=== PATIENT | female | born 1980 | race Caucasian/White ===

== ENCOUNTER 2017-06-25 05:32 | Inpatient (IN) | payer OTHER ==
[~2017-06-25] VITALS: Ht 165.1 cm; Wt 96.2 kg
[2017-06-25] MEDS ORDERED: CeFAZolin Inj 2 GM in IV Premix 1 EACH IV SCH (05:50)
[2017-06-25] MEDS ORDERED: Carboprost 250 mCg/mL Inj IM PRN ×2 (05:50→08:55)
[2017-06-25] MEDS ORDERED: Methylergonovine 0.2 mg/mL Inj IM PRN ×2 (05:50→08:55)
[2017-06-25] MEDS ORDERED: Oxytocin 10 Unit/mL Inj IM PRN ×2 (05:50→08:55)
[2017-06-25] MEDS ORDERED: Hemorrhage Kit, Post Partum XX ONE ×2 (05:50→08:55)
[2017-06-25] MEDS ORDERED: Sodium Citrate-Citric Acid 15 mL Solution PO SCH (05:50)
[2017-06-25] MEDS: Lactated Ringer's 1,000 ML IV SCH ×4 (06:29→16:37)
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
[2017-06-25 07:24] LABS: Mean Corpuscular Hemoglobin 30.3 pg (27.0-35.0); Mean Corpuscular Volume 90.1 fL (81-100)
[2017-06-25] MEDS ORDERED: Lactated Ringer's 1,000 ML IV PRN (07:24)
--- NOTE | 2017-06-25 07:24 | PCM.HPANE ---
Patient Data Surgeon Admitting Provider:Brian Jolley MD Attending Provider:Brian Jolley MD Primary Care Physician:Kitty Stout PA-C Other Provider:Misha Olivares Anesthesia Reason for Visit Previous PREVIOUS Ht/WT & BMI Body Mass Index Allergies Coded Allergies: latex (Verified Allergy, Intermediate, 06/25/17) codeine (Verified Allergy, Mild, NAUSEA, 09/14/09) Uncoded Allergies: Codeine (Allergy, Mild, 07/23/05) Past Anesthesia History Anesthesia History: Denies:: Abnormal Airway, Anesthesia Reactions, Difficult Intubation, Fam Anesthesia Reaction, Fam Malignant Hypertherm, Malignant Hyperthermia Diabetes History Hx Diabetes?: No Medications Hypertension Medication: No Home Meds Incl Beta Kei: No History History of ENT Problems?: No HEENT History: Denies:: Abnormal Airway Cataracts Difficult Intubation Dysphagia Glaucoma Hearing Problem Sinus Problem TMJ Denture Type: None Teeth Condition: Within Normal Limits Hx of Heart Problems?: No Cardiovascular History: Denies:: AICD Abdominal Aortic Aneurism Atrial Fibrillation Cardiac Surgery Chest Pain Congestive Heart Failure Coronary Artery Disease Edema Heart Murmur Hypertension Irregular Heartbeat Pacemaker Peripheral Vascular Rheumatic Fever Thrombophlebitis Valvular Heart Disease Hx of Respiratory Problem?: No Respiratory History: Denies:: Asthma COPD Chest Surgery Cough Dyspnea Emphysema Hemoptysis Oxygen Administration Pneumonia Pulmonary Embolism Tuberculosis Use of C-PAP Machine Use of Inhalers / NEBS Hx Neurologic Problems?: No Hx of GI Problems?: Yes Gastrointestinal History: Positive for:: Heartburn Hx of Problems?: No Female Hx: Positive for:: Currently Hx Musculoskeletal Problems?: No Hx Surgeries?: Yes Smoking Status: Never Smoker Stop/Bang Treated for Sleep Apnea?: No Do You Have a CPAP Machine?: No PINO Risk Assessment: Low Risk, <3 Yes Risk Assessment Category Category 1A: Patient has history of documented sleep apnea, and HAS NOT received any narcotic, sedative or anesthesia administration during this stay. Category 1B: Patient has history of documented sleep apnea, and HAS received any narcotic , sedative or anesthesia administration during this stay Category 2: Patient has SUSPECTED Obstructive Sleep Apnea, and HAS received any narcotic , sedative or anesthesia administration during this stay. Category 3: Patient has SUSPECTED Obstructive Sleep Apnea and HAS NOT received narcotic, sedative or anesthesia administration during this stay. Category 4: Outpatient in Procedural Areas with known sleep apnea or who screen positive for High Risk via the STOP/BANG questionnaire. Exam Exam General Appearance: Oriented X3 HEENT/AIRWAY: MP 2 Lungs: Normal Air Movement Heart: Regular Rate/Rhythm Meds/Labs/Diagnostics Admission Meds Current Medications Lactated Ringer's (Lr) 1,000 ml @ 125 mls/hr Q8H IV Last administered on t 06:29; Start 06/25/17 at 05:46; Stop 06/25/17 at 13:45 Labs Test 06/25/17 06:22 Plan Impression Patient chart reviewed, patient interviewed and anesthestic plan with risks, benefits, and alternatives discussed, and informed consent obtained. ASA Physical Status: ASA2 Mod Systemic Disease Anesthetic Plan: SAB Bene/Risks/Altern/Consents: Yes HP Complete Prior to Induction: Yes Art York MD Jun 25, 2017 07:24
[2017-06-25] MEDS ORDERED: Ondansetron 2 mg/mL 2 mL Inj IVPUSH PRN (07:25)
[2017-06-25] MEDS ORDERED: Atropine 0.4 mg/mL Inj IV PRN (07:25)
[2017-06-25] MEDS ORDERED: EPHEDrine Sulfate 50 mg/mL Inj IVPUSH PRN (07:25)
[2017-06-25] MEDS ORDERED: MetoCLOpramide 5 mg/mL 2 mL Inj IVPUSH PRN (07:25)
[2017-06-25] MEDS ORDERED: Phenylephrine/NS-PF 100 mCg/mL 5 mL Syringe IVPUSH PRN (07:25)
[2017-06-25] MEDS ORDERED: Dexamethasone 4 mg/mL Inj IVPUSH PRN (07:25)
[2017-06-25] MEDS ORDERED: Morphine PF 1 mg/mL 10 mL Inj EPIDURAL ONE (07:25)
[2017-06-25] MEDS ORDERED: Sodium Chloride LOK Flush 10 mL Syringe IVFLUSH PRN (08:55)
[2017-06-25] MEDS ORDERED: LANOlin HPA 7 Gm Ointment TOPICAL PRN (08:55)
[2017-06-25] MEDS ORDERED: Oxytocin 30 Units/500 mL LR 30 UNITS in IV Premix 1 EACH IV PRN (08:55)
[2017-06-25] MEDS ORDERED: TdaP Vaccine 0.5 mL Inj IM ONE (08:55)
[2017-06-25] MEDS ORDERED: Measles-Mumps-Rubella Vaccine 0.5 mL Inj SUBQ ONE (08:55)
[2017-06-25] MEDS ORDERED: Influenza (Adult) Vaccine 0.5 mL Syringe IM ONE (08:55)
--- NOTE | 2017-06-25 09:16 | PCM.ANEP1 ---
Post Anesthesia PACU Phase 1 Assessment Anesthetic Administered: GA Level of Alertness: Awake, talking Pain: No Nausea or Vomiting: No CV Function & Hydration Stable: Yes Airway Device: Lungs: Normal Air Movement PACU Phase 2 Assessment Patient Instructions Provided: N/A Art York MD Jun 25, 2017 09:16
[2017-06-25] MEDS: fentaNYL-PF 50 mCg/mL 2 mL Inj IVPUSH PRN ×2 (09:22→10:58)
[2017-06-25] MEDS: Acetaminophen IV 1,000 MG in IV Premix 1 EACH IV PRN ×2 (10:07→16:38)
[2017-06-25] MEDS ORDERED: OXYTOCIN IV ONE (11:30)
[2017-06-25] MEDS ORDERED: LACTATED RINGER S IV ONE (11:30)
[2017-06-25] MEDS ORDERED: Oxytocin 10 Unit/mL Inj ONE (12:54)
[2017-06-25] MEDS ORDERED: Phenylephrine/NS 100 mCg/mL 10 mL Syringe IVPUSH ONE (12:54)
[2017-06-25] MEDS ORDERED: Bupivacaine-MPF 0.75% 30 mL Inj ONE (12:54)
[2017-06-25] MEDS ORDERED: Ondansetron 2 mg/mL 2 mL Inj ONE (12:54)
[2017-06-25] MEDS ORDERED: MetoCLOpramide 5 mg/mL 2 mL Inj ONE (12:54)
[2017-06-25] MEDS ORDERED: Dexamethasone 4 mg/mL Inj ONE (12:54)
[2017-06-25] MEDS ORDERED: Morphine PF 1 mg/mL 10 mL Inj ONE ×2 (12:54→17:17)
[2017-06-25] MEDS ORDERED: BUPR150T8 AD (13:17)
[2017-06-25] MEDS ORDERED: MODAFINIL (13:17)
[2017-06-25] MEDS ORDERED: LEVO50TA6 PO (13:17)
[2017-06-25] MEDS: CeFAZolin Inj 2 GM in IV Premix 1 EACH IV SCH (16:42)
[2017-06-25] MEDS: oxyCODONE-Acetamin 5-325 mg Tablet PO PRN ×2 (19:38→23:43)
[2017-06-26] MEDS: CeFAZolin Inj 2 GM in IV Premix 1 EACH IV SCH (00:37)
[2017-06-26] MEDS: oxyCODONE-Acetamin 5-325 mg Tablet PO PRN ×4 (05:11→19:48)
[2017-06-26 06:31] LABS: Mean Corpuscular Hemoglobin 30.4 pg (27.0-35.0); Mean Corpuscular Volume 90.8 fL (81-100)
[2017-06-26] MEDS: hydrOXYzine Pamoate 25 mg Capsule PO PRN ×2 (10:03→16:51)
[2017-06-26] MEDS ORDERED: buPROPion SR 150 mg ER12 Tablet PO ONE (12:05)
[2017-06-27] MEDS: hydrOXYzine Pamoate 25 mg Capsule PO PRN ×2 (00:11→12:07)
[2017-06-27] MEDS: oxyCODONE-Acetamin 5-325 mg Tablet PO PRN ×4 (00:13→14:19)
--- NOTE | 2017-06-27 07:45 | PCM.DIOB ---
Obstetrical Disch Instruction Dates of Hospitalization Date of Hospital Admission Jun 25, 2017 at 05:32 Providers Admitting Physician: Brian Jolley MD Primary Care Physician: Kitty Stout PA-C Attending Physician: Brian Jolley MD Discharge Diagnosis Problems: (1) Previous section Status: Acute ICD Code: Z98.891 Diet Discharge Diet: No restrictions Activity Discharge Activity-General: Pelvic Rest for 6 weeks, No lifting >10 pounds for 4-6 weeks Dressing and Incisional Care Dressing Care: Allow Steri Stripes to fall off Hygiene: May shower, DO NOT soak incision under water, NO bathtub, hot tub or whirlpool Follow Up Plan Follow-up appointment: Weeks (Followup in 2 and 6 weeks for / postoperative checkups at [facility]. Call soon to make appointments.) Call your provider for: Fever or Chills, Shortness of breath, Heavy vaginal bleeding, Red painful breasts Brian Jolley MD Jun 27, 2017 07:45
[2017-06-27] MEDS ORDERED: IBUP-1827 PO (07:47)
[2017-06-27] MEDS ORDERED: OXYC1TAB24 PO (07:47)
[2017-06-27] MEDS ORDERED: DOCU-41 PO (07:48)
[2017-06-27] MEDS ORDERED: FERR-83 PO ×2 (07:48→07:49)
--- NOTE | 2017-06-27 10:06 | OP ---
[address] [address] OPERATIVE REPORT PATIENT: JOSH SEGUNDO : 1980 MR#: [id number] ADMIT: 06/25/2017 JOB ID: [id number] DATE OF SURGERY: 06/26/2017 SURGEON: Brian Jolley M.D. ANGLE SHEAR OPERATOR: Martin Salinas M.D. ANESTHESIA: Spinal. PREOPERATIVE DIAGNOSIS(ES): 1. Term . 2. Prior section, for requested scheduled repeat . POSTOPERATIVE DIAGNOSIS(ES): 1. Term . 2. Prior section, for requested scheduled repeat . 3. Confirmed macrosomia. PROCEDURE PERFORMED: Repeat low transverse section. INDICATIONS FOR SURGERY: This patient has previously undergone a vaginal and then a section for macrosomic fetus. She has been concerned regarding this baby size and she has requested repeat section this time as opposed to vaginal after section. She understood the risks of surgery, and signed informed consent. Note that the patient has also requested bilateral tubal excision (or bilateral tubal ligation) at time of which has been planned. However, it was unknown by surgical staff that she was in fact having secondary insurance [employer]. She has thus not signed her investUP will thus not be performed and this was discussed with the patient, and she has requested this be accomplished at about six weeks . FINDINGS AT SURGERY: Some minor adhesions in the peritoneal cavity. Uterus, ovaries and tubes normal. Baby active and crying and vigorous on the operative field. No excessive bleeding during the case. It certainly is anticipated that mother and baby will do very well during the postoperative/ timeframe. DESCRIPTION OF PROCEDURE: INCOMPLETE DICTATION: "Dictation ends here."
[2017-06-27 14:30] VITALS: BP 133/63; PULSE 106; RESP 20
--- NOTE | 2017-06-29 07:02 | DIS ---
[address] [address] DISCHARGE SUMMARY PATIENT: JOSH SEGUNDO : 1980 MR#: [id number] ADMIT: 06/25/2017 JOB ID: [id number] DIS: 06/27/2017 DISCHARGE DIAGNOSES: 1. Term , delivered. 2. Prior section, with patient requested scheduled repeat section, accomplished. 3. macrosomia. 4. Anemia. PROCEDURES PERFORMED DURING HOSPITALIZATION: 1. Repeat low transverse section. 2. Spinal anesthesia. HOSPITAL COURSE: The patient was admitted to [facility] on the morning of June 25, 2017, on which day, she underwent procedures as described. During the postoperative/ timeframe, initially she had very heavy bleeding that required Cytotec to help resolve. She then did well. hemoglobin drifted to 9.2. Patient did well with ambulation, voiding. Had no recurrent heavy bleeding. She has had no leg pain or shortness of breath. Pain management was reasonable, and she handled baby well. She had no incisional problems. Lionel were removed on the second postoperative day, with benzoin and half-inch Steri-Strip application. The patient was interested in discharge to home on the second postoperative/ day, i.e. on June 27, 2017. DISCHARGE PROGRAM: The patient will call p.r.n. Otherwise, she will follow up at two weeks for incision check, and then at six weeks for final /postoperative check up. She will observe pelvic rest, and not doing any heavy lifting for six weeks. DISCHARGE MEDICATIONS: Includes: 1. Oxycodone/acetaminophen 5/325. 2. Ibuprofen 600 mg. 3. Ferrous sulfate 325 mg p.o. b.i.d. 4. Docusate sodium 100 mg p.o. b.i.d. Prescriptions written. Note that patient has supplies of other medications that she uses at home, includin. Levothyroxine 50 mcg daily (recent start in late ). 2. Bupropion ER 150 mg daily. 3. vitamin daily.
--- NOTE | 2017-07-01 10:41 | PROG NOTE ---
[address] [address] PROGRESS NOTE PATIENT: JOSH SEGUNDO : 1980 MR#: [id number] ADMIT: 06/25/2017 JOB ID: [id number] DATE: 06/26/2017 SUBJECTIVE: The patient underwent repeat section at term, scheduled, on June 25, 2017. She experienced some initial significant bleeding in her room after transfer from the operating room, and this resolved with aggressive massage, ongoing intravenous Pitocin infusion and with per rectum Cytotec. Hemoglobin drifted down to 9.2. Otherwise, patient did well, with stable vitals. She did well, with acceptable vital signs, afebrile, with no further recurrence of heavy bleeding, with reasonable pain management, ambulating and voiding, without incisional problem, without leg pain or shortness of breath, and handling baby well. INCOMPLETE DICTATION: Dictation ends here.
== END 2017-06-27 15:53 | disposition home or self-care (01) | DRG 766 ==
LOC: FBC 05:32 → EDSTATUS 07:15
PROVIDERS: ADMIT Obstetrics & Gynecology; ATTEND Obstetrics & Gynecology
PROC: 10D00Z1 Extraction of Products of Conception, Low, Open Approach (ICD-10-PCS; principal; 2017-06-26)
DX: O34.211 Maternal care for low transverse scar from previous cesarean delivery (principal); O36.63X0 Maternal care for excessive fetal growth, third trimester, not applicable or unspecified; O90.81 Anemia of the puerperium; D64.9 Anemia, unspecified; Z37.0 Single live birth; Z3A.39 39 weeks gestation of pregnancy

== ENCOUNTER → 2017-08-07 | Day surgery (SDC) | payer OTHER ==
[~2017-08-07] MED LIST: BUPR150T12 PO; BUPR150T8 AD; DOCU-41 PO; FERR-83 PO; IBUP-1827 PO; LEVO50TA6 PO; MODAFINIL; OXYC1TAB24 PO; PREN-54 PO; [UNRECOGNIZED DRUG - CODE] PO
[2017-08-07 13:17] LABS: BASOPHILS % (AUTO) 0.3 % (0-3); MONOCYTES % (AUTO) 8.8 % (4-12); Mean Corpuscular Hemoglobin 28.5 pg (27.0-35.0); Mean Corpuscular Volume 85.2 fL (81-100); NEUTROPHILS % (AUTO) 43.8 % (40-74); Platelet Count 221 bil/L (150-400)
== END | disposition home or self-care (01) ==
LOC: SAS 13:00
PROVIDERS: ATTEND Obstetrics & Gynecology
DX: E04.1 Nontoxic single thyroid nodule (principal)

== ENCOUNTER → 2017-08-13 | Day surgery (SDC) | payer OTHER ==
[2017-08-13] VITALS (11 sets, daily range): BP systolic 114–155; BP diastolic 52–96; PULSE 45–93; RESP 12–18; O2SAT 92–100
[~2017-08-13] VITALS: Ht 165.1 cm; Wt 82.5 kg
[~2017-08-13] MED LIST changes: -BUPR150T8 AD; -DOCU-41 PO; +Dexamethasone 4 mg/mL Inj IVPUSH PRN; +Dexamethasone 4 mg/mL Inj ONE; +EPHEDrine Sulfate 50 mg/mL Inj IVPUSH PRN; -FERR-83 PO; +Glycopyrrolate 0.2 MG/ML 1mL Inj ONE; -IBUP-1827 PO; -LEVO50TA6 PO; +Lactated Ringer's 1,000 ML IV ONE; +Lactated Ringer's 1,000 ML IV SCH; +Lactated Ringer's 500 ML IV PRN; +Lidocaine 2%-Epi 1:100,000 20 mL Inj INFILTRATE ONE; -MODAFINIL; +MetoCLOpramide 5 mg/mL 2 mL Inj IVPUSH PRN; +Neostigmine 1 mg/mL 10 mL Inj ONE; -OXYC1TAB24 PO; +Ondansetron 2 mg/mL 2 mL Inj IVPUSH PRN; +Ondansetron 2 mg/mL 2 mL Inj ONE; +Phenylephrine 10,000 mCg/mL Inj IVPUSH PRN; +Propofol 10,000 mCg/mL 20 mL Inj ONE; +Rocuronium 10 mg/mL 5 mL Inj ONE; +fentaNYL-PF 50 mCg/mL 2 mL Inj ONE
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
--- NOTE | 2017-08-13 07:45 | PCM.HPANE ---
Patient Data Surgeon Admitting Provider: Attending Provider:Brian Jolley MD Primary Care Physician:Kitty Stout PA-C Other Provider:Misah Olivares Anesthesia Reason for Visit Desires Sterilization Ht/WT & BMI Height (Feet): 5 Height (Inches): 5.00 Weight (Kilograms): 82.550 Body Mass Index 30.00 Allergies Coded Allergies: latex (Verified Allergy, Intermediate, 08/07/17) codeine (Verified Allergy, Mild, NAUSEA, 08/07/17) Past Anesthesia History Anesthesia History: Denies:: Abnormal Airway, Anesthesia Reactions, Difficult Intubation, Fam Anesthesia Reaction, Fam Malignant Hypertherm, Malignant Hyperthermia Diabetes History Hx Diabetes?: No MRSA MRSA: No Medications Hypertension Medication: No Home Meds Incl Beta Kei: No Reported Medications Vit #76/Iron,Carb/FA (Prenatabs Rx Tablet)1 Each Tablet1 Each PO 08/13/17 Bupropion ER 150 Mg Tablet.er150 Mg PO DAILY Ref 0 08/07/17 Butalbital/Aspirin/Caffeine (Tnllej-Ojcglwy-Cghmp 50-325-40)50 Mg-325 Mg-40 Mg Tablet1-2 Each PO Q4H PRN migraines 08/07/17 Discontinued Reported Medications [Alertec 10mg. one hs] No Conflict Check 06/25/17 Levothyroxine 50 Mcg [id number] Mcg PO DAILY Ref 0 06/25/17 Bupropion ER (Wellbutrin SR)150 Mg Tablet.er150 Mg AD DAILY Ref 0 06/25/17 Discontinued Scripts Ferrous Sulfate 325 Mg [id number] Mg PO BID 30 Days Ref 1 Prov:Brian Jolley MD 06/27/17 Docusate Sodium (Colace)100 Mg [id number] Mg PO BID #60 CAPSULE Ref 1 Prov:Brian Jolley MD 06/27/17 oxyCODONE-Acetaminophen 5-325 mg 1 Each Tablet1-2 Tab PO Q4H PRN For Pain #30 TABLET Prov:Brian Jolley MD 06/27/17 Ibuprofen 600 Mg [id number] Mg PO Q6H PRN For Pain #30 TABLET Prov:Brian Jolley MD 06/27/17 History History of ENT Problems?: Yes HEENT History: Positive for:: TMJ (clenches- no nightguard) Denies:: Abnormal Airway Cataracts Difficult Intubation Dysphagia Glaucoma Hearing Problem Sinus Problem Denture Type: None Teeth Condition: Within Normal Limits Hx of Heart Problems?: No Cardiovascular History: Denies:: AICD Abdominal Aortic Aneurism Atrial Fibrillation Cardiac Surgery Chest Pain Congestive Heart Failure Edema Heart Murmur Hypertension Irregular Heartbeat (prior hx palpitations- neg work up 4 yrs ago) Pacemaker Rheumatic Fever Thrombophlebitis Valvular Heart Disease Hx of Respiratory Problem?: No Respiratory History: Denies:: Asthma COPD Chest Surgery Cough Dyspnea Emphysema Hemoptysis Oxygen Administration Pneumonia Pulmonary Embolism Tuberculosis Use of C-PAP Machine Hx Neurologic Problems?: Yes Neurological History: Positive for:: Headaches (weekly) Denies:: Alzheimer's Disease CVA Multiple Sclerosis Parkinson's Disease Seizures TIA Hx of GI Problems?: Yes Hx of Problems?: No Genitourinary History: Denies:: Kidney Stones Urinary Tract Infection Female Hx: Denies:: Currently Problems with Breasts? Skin History: Positive for:: History Skin Disorders? (c section incision- far left side sl open MD aware) Denies:: Pressure Ulcers Hx Musculoskeletal Problems?: No Musculoskeletal History: Denies:: Fibromyalgia Osteoarthritis Systemic Lupus Hx of Psycho/Social Problems?: Yes Psycho Social History: Positive for:: Anxiety Hx Depression Hx Surgeries?: Yes (c sections x 2) Hx Any Other Health Problems?: Yes Other History: Positive for:: Thyroid Disease (right side enlarged- being monitored ) Denies:: Cancer History Blood Transfusions: Positive for:: Accept Blood Products? Denies:: Blood Transfusions Hx Diabetes: No Hx Alcohol Use: YesAlcoholic Drinks Per Day: once monthlyHx Substance Use: No Smoking Status: Never Smoker Have You Smoked inLast 12 mo: No Stop/Bang Treated for Sleep Apnea?: No Do You Have a CPAP Machine?: No S-Snoring: Do You Snore Loudly: No T-Tired: feel tired, fatigued: Yes O-Obsered: Observed not breath: No P-Blood Pressure: treated: No B- Body Mass Index > 35 kg/m2: No A- Age over 50: No N- Neck Large Circumference: No G- Gender Male: No PINO Total Score: 1 Risk Assessment Category Category 1A: Patient has history of documented sleep apnea, and HAS NOT received any narcotic, sedative or anesthesia administration during this stay. Category 1B: Patient has history of documented sleep apnea, and HAS received any narcotic , sedative or anesthesia administration during this stay Category 2: Patient has SUSPECTED Obstructive Sleep Apnea, and HAS received any narcotic , sedative or anesthesia administration during this stay. Category 3: Patient has SUSPECTED Obstructive Sleep Apnea and HAS NOT received narcotic, sedative or anesthesia administration during this stay. Category 4: Outpatient in Procedural Areas with known sleep apnea or who screen positive for High Risk via the STOP/BANG questionnaire. Exam Exam Vital Signs Vital Signs Date Time Temp Pulse Resp B/P Pulse Ox O2 Delivery O2 Flow Rate FiO2 08/13/17 06:39 36.1 61 18 115/60 97 Room Air General Appearance: Alert, Oriented X3, Cooperative, No Acute Distress HEENT/AIRWAY: MP 2 Lungs: Clear to Auscultation, Normal Air Movement Heart: Exam Unremarkable, Regular Rate/Rhythm, No Murmurs/Rubs/Gallops Meds/Labs/Diagnostics Admission Meds Current Medications Lactated Ringer's (Lr) 1,000 ml @ 120 mls/hr Q8H20M ONCE IV Last administered on 08/13/17t 06:00; Start 08/13/17 at 05:00; Stop 08/13/17 at 13:19 Plan Impression Patient chart reviewed, patient interviewed and anesthestic plan with risks, benefits, and alternatives discussed, and informed consent obtained. ASA Physical Status: ASA1 Normal Healthy Anesthetic Plan: GA Bene/Risks/Altern/Consents: Yes HP Complete Prior to Induction: Yes Sandeep Ambrose MD Aug 13, 2017 07:45
[2017-08-13] MEDS: fentaNYL-PF 50 mCg/mL 2 mL Inj IVPUSH PRN ×2 (09:08→09:35)
--- NOTE | 2017-08-13 09:19 | PCM.ANEP1 ---
Post Anesthesia PACU Phase 1 Assessment Vital Signs Vital Signs Date Time Temp Pulse Resp B/P Pulse Ox O2 Delivery O2 Flow Rate FiO2 08/13/17 09:10 36.5 93 14 152/89 99 Simple Mask 8 08/13/17 08:55 93 16 151/93 96 Simple Mask 8 08/13/17 08:50 92 16 143/96 97 Simple Mask 8 08/13/17 08:45 91 15 147/87 97 Simple Mask 8 08/13/17 08:40 36.4 89 12 155/86 92 Simple Mask 8 08/13/17 06:39 36.1 61 18 115/60 97 Room Air Anesthetic Administered: GA Level of Alertness: Awake, talking WASSERMAN's with Equal Strength: Yes Pain: Yes Pain Scale Score: 6 Nausea or Vomiting: No CV Function & Hydration Stable: Yes Airway Device: none Oxygen Delivery: Nasal Cannula Lungs: Clear to Auscultation, Normal Air Movement Dermatome Level: Full Sensation PACU Phase 2 Assessment Complications: No Follow up Care: No Patient Instructions Provided: N/A Sandeep Ambrose MD Aug 13, 2017 09:19
[2017-08-13] MEDS: HYDROmorphone 1 mg/mL Inj IVPUSH PRN ×3 (09:25→11:15)
[2017-08-13] MEDS: oxyCODONE-Acetamin 5-325 mg Tablet PO PRN ×2 (10:30→14:57)
[2017-08-13] MEDS: MetoCLOpramide 5 mg/mL 2 mL Inj IVPUSH PRN ×2 (11:39→13:19)
--- NOTE | 2017-08-14 07:08 | OP ---
[address] [address] OPERATIVE REPORT PATIENT: JOSH SEGUNDO : 1980 MR#: [id number] ADMIT: 08/13/2017 JOB ID: [id number] DATE OF SURGERY: 08/13/2017 SURGEON: Brian Jolley MD ANESTHESIA: General. PREOPERATIVE DIAGNOSIS(ES): Desires sterilization. POSTOPERATIVE DIAGNOSIS(ES): Desires sterilization. PROCEDURE PERFORMED: Laparoscopic bilateral tubal ligation via Falope rings. INDICATIONS FOR SURGERY: This patient has determined that she does not want to have additional children. Her agrees. They have agreed that tubal sterilization be accomplished as opposed to a vasectomy, understanding benefits and risks, pros and cons. The patient has preferred tubal excision, although understanding that tubal ligation would be accomplished if excision was not readily feasible. She has understood risks of surgery to include bleeding, infection, injury to the urinary tract and bowel, anesthetic risks, etc. She has understood that tubal ligation can fail. She signed informed consent for surgery. FINDINGS AT SURGERY: Uterus demonstrated normal size. Some adhesions involving the lower uterine segment to the bladder region, consistent with prior history. This could potentially make hysterectomy, if ever needed, a little more difficult, likely requiring at least laparoscopic-assisted approach. Ovaries were normal in size, without any concerning mass or other problem. Fallopian tubes had normal caliber, note bilateral adhesions; however. On the right, some bandlike adhesions that were more minor, on the left distal third of the fallopian tube was rather adherent, plastered to the left ovary. This finding helped determine that tubal ligation would be accomplished as opposed to more heroic tubal excision effort, particularly involving the left side. At procedure's close, a Falope ring had been securely placed on the isthmic portion of each fallopian tube. There was no internal bleeding. All instruments, sponges, and needles were accounted for at procedure's close. It certainly is anticipated that the patient will do well during the postoperative timeframe. She should avoid sexual intercourse for a couple of weeks postop. She should check test if she ever thinks she is ; understands there is a small chance that tubal ligation could fail, although would be unexpected; to keep in mind, history of moderate adhesions if in fact hysterectomy is ever required. DESCRIPTION OF PROCEDURE: The patient was placed in supine position on the operative table and general anesthesia was induced. She was then carefully repositioned into the low dorsal lithotomy position, and prepped and draped in the usual sterile manner. After appropriate time-out was taken, the CJ cannula was secured in place within the cervix/uterine cavity, and attention was then directed to the abdomen, where semilunar infraumbilical skin incision was made with a knife. This incision was carried through skin, subcutaneous tissues, and fascial layer using open technique, and trocar sheath was secured in place. Laparoscope was introduced, CO2 and light sources connected, and video laparoscopy was accomplished with findings as noted above. A shorter transverse incision was then made at the midline, at the hairline, and a second trocar sheath was secured in place. Probe was advanced to facilitate the visualization of the uterus, ovaries, and tubes, with findings as noted above. Then, with significant adhesions between particularly the left fallopian tube distally and the ovary, it was not felt to be prudent to try to accomplish adhesiolysis simply for the purpose of removing normal-appearing left fallopian tube from normal-appearing left ovary for sterilization purposes, as significant bleeding would be anticipated, and potential need for laparotomy if this occurred. Thus, decision was made for bilateral tubal ligation, as previously discussed as the backup plan in case bilateral tubal excision was not she readily feasible. The Falope ring applicator was individually loaded, and a Falope ring securely placed within the isthmic portion of the left fallopian tube. There was no bleeding. The Falope ring applicator was then individually loaded once again, and Falope ring applied to the isthmic portion of the right fallopian tube. There was no bleeding. Internal procedures were thus complete, and all instruments removed from the abdomen, and the CO2 gas was allowed to escape. Subumbilical fascial incision was closed in a pursestring fashion using 0 Vicryl suture. Each skin incision was then closed with interrupted vertical mattress stitches of 4-0 Vicryl suture, and benzoin was then applied, and half-inch Steri-Strips placed across the incisions. Bandages were placed, and attention was then directed to the vaginal region, where the CJ cannula was removed. Final instrument, needle, and sponge counts were all found to be correct, and procedure was thus complete. Patient was returned to supine position and then awakened. COMPLICATIONS: None. BLOOD LOSS: 10 cc. PROGNOSIS: Good for surgical recovery.
== END | disposition home or self-care (01) ==
LOC: SAS 05:49
PROVIDERS: ATTEND Obstetrics & Gynecology
DX: Z30.2 Encounter for sterilization (principal); R51 Headache; F41.9 Anxiety disorder, unspecified; F32.9 Major depressive disorder, single episode, unspecified; Z79.899 Other long term (current) drug therapy
CPT/HCPCS: 58671; A4264; J1100; J1170; J1885; J2175; J2250; J2405; J2704; J2710; J2765; J3010; J7120